=== PATIENT | female | born 1970 | race Caucasian/White ===

== ENCOUNTER → 2019-06-20 09:45 | Outpatient (BNVA) | payer MEDICARE, MEDICAID, SELFPAY | PROVIDERS: Family Provider Family Medicine; PCP Family Medicine; Visit Provider Family Medicine | DX: Z12.31 Encounter for screening mammogram for malignant neoplasm of breast (principal); F17.219 Nicotine dependence, cigarettes, with unspecified nicotine-induced disorders; I10 Essential (primary) hypertension; Z01.419 Encounter for gynecological examination (general) (routine) without abnormal findings; E78.2 Mixed hyperlipidemia | CPT/HCPCS: 36415; 80053; 80061; 85007; 85027 ==

== ENCOUNTER 2019-07-20 07:56 | Day surgery (SDC) | payer MEDICARE, MEDICAID, SELFPAY ==
[2019-07-19 10:05] VITALS: BMI 27.4
[2019-07-20 08:08] VITALS: BP 116/88; PULSE 90; RESP 18; TEMP 36.2; O2SAT 97
[2019-07-20] MEDS: sodium chloride 0.9% 1,000 ML 30 ML IV (08:40)
--- NOTE | 2019-07-20 08:44 | ANES.PREANE2 ---
Pre-Anesthetic Assessment Pre-Anesthetic Assessment: Height/Weight: Height 1.71 m Weight 80.739 kg Temp Pulse Resp BP Pulse Ox 97.2 F L 90 18 116/88 97 07/20/19 08:08 07/20/19 08:08 07/20/19 08:08 07/20/19 08:08 07/20/19 08:08 Preop Diagnosis: Ankle retained hardware right ankle Proposed Procedure: Operation Date: 07/20/19 09:15 Proposed Procedures p Hardware Removal Right ankle 69867 T84.84XA(Right) - Matty Cramer DPM Last intake: Intake Last Liquid Date 07/19/19 Last Liquid Time 22:00 Last Solid Date 07/19/19 Last Solid Time 22:00 Social: Packs per day: .5 Pack years: 20 Exam: Pre-Anes Outpt Exam: alert, oriented x 3, clear to auscultation bilaterally and regular rate & rhythm Airway: Submandibular: WNL Cervical ROM: WNL MP: 1 Additional comments: poor Pulmonary: Pulmonary: Asthma Comments: s/p pneumothorax CV/HEM: CV/HEM: HTN Comments: x 10y : Comments: stones Neuropsych: Neuropsych: Depression and Seizure Comments: pabic attack Anesthetic Plan: ASA status: 3 Anesthesia: MAC Meds/Allergies Current Medications: Current Medications Generic Name Dose Route Start Last Admin Trade Name Freq PRN Reason Stop Dose Admin Sodium Chloride 1,000 mls @ 30 ml s/hr 07/20/19 07:15 07/20/19 08:40 Sodium Chloride 0.9% IV 07/21/19 07:14 30 mls/hr .Q24H SHONDA Administration PFSH Anesthesia PFSH: Medical History (Updated 07/11/19 @ 07:44 by Matty Cramer DPM) Asthma, mild persistent (Acute) Bipolar affective (Acute) Essential (primary) hypertension (Chronic) Gastric ulcer (Acute) Hyperlipidemia, unspecified (Chronic) Intervertebral disc disorders with radiculopathy, lumbosacral region (Acute) Nicotine dependence, cigarettes, with unspecified nicotine-induced disorders (Chronic) Renal calculi (Acute) Retention of urine (Acute) Error Surgical History H/O removal of cyst (Acute) H/O: hysterectomy (Acute) S/P appendectomy (Acute) S/P cholecystectomy (Acute) S/P hardware removal (Acute) S/P tonsillectomy and adenoidectomy (Acute) S/P tubal ligation (Acute) Status post open reduction with internal fixation (ORIF) of fracture of ankle (Acute) Social History Smoking and tobacco status: current every day smoker cigarettes Second hand smoke exposure: Yes Smoking risk assessment/counseling performed?: Yes Alcohol intake: never Desire information about alcohol rehabilitation?: No Counseling given: No Desire information about substance/drug rehabilitation?: No Counseling given: No Adopted: No Caregiver/support person: Yes Lives independently: No Household members: spouse, family and children Housing: House Current gender identity: Female Data Anesthesia Cardiac Studies: No Data to Display
--- NOTE | 2019-07-20 09:40 | P.HPUD_ITS ---
H&P update H&P Update: DATE OF SURGERY/PROCEDURE: 07/20/19 DATE H&P PERFORMED: H&P UPDATE INFORMATION: H&P completed within last 30 days, No changes to prior documentation and H&P is in [facility] [place] indicated PREOP DIAGNOSIS: Ankle retained hardware right ankle PLANNED PROCEDURE: Operation Date: 07/20/19 09:15 Proposed Procedures p Hardware Removal Right ankle 45967 T84.84XA(Right) - Matty Cramer DPM Full H&P Medications/Allergies: Current Medications: Current Medications Generic Name Dose Route Start Last Admin Trade Name Freq PRN Reason Stop Dose Admin Sodium Chloride 1,000 mls @ 30 ml s/hr 07/20/19 07:15 07/20/19 08:40 Sodium Chloride 0.9% IV 07/21/19 07:14 30 mls/hr .Q24H SHONDA Administration Perinent History: Medical/Surgical History: Medical History (Updated 07/11/19 @ 07:44 by Matty Cramer DPM) Asthma, mild persistent (Acute) Bipolar affective (Acute) Essential (primary) hypertension (Chronic) Gastric ulcer (Acute) Hyperlipidemia, unspecified (Chronic) Intervertebral disc disorders with radiculopathy, lumbosacral region (Acute) Nicotine dependence, cigarettes, with unspecified nicotine-induced disorders (Chronic) Renal calculi (Acute) Retention of urine (Acute) Error Family History: Family History (Updated 07/10/19 @ 15:22 by Rhoda Mcgraw LPN) Other Anesthesia complication Cancer Diabetes Heart disease Denies family history of CAD (coronary artery disease) Clotting disorder Dementia Hyperlipidemia Psychiatric illness Chronic kidney disease (CKD) Suicide Bleeding disorder Family history of premature coronary artery disease Lung disease Hypertension Stroke Social History: Social History Smoking and tobacco status: current every day smoker cigarettes Second hand smoke exposure: Yes Smoking risk assessment/counseling performed?: Yes Alcohol intake: never Desire information about alcohol rehabilitation?: No Counseling given: No Desire information about substance/drug rehabilitation?: No Counseling given: No Adopted: No Caregiver/support person: Yes Lives independently: No Household members: spouse, family and children Housing: House Current gender identity: Female
[2019-07-20 10:49] VITALS: BP 135/98; PULSE 108; RESP 20; TEMP 36.8; O2SAT 100
--- NOTE | 2019-07-20 10:54 | P.OP_ITS ---
Operative Report Date of procedure: July 20, 2019 Pre-op Diagnosis: Ankle retained hardware right ankle Post-op diagnosis: same Post-op Findings: Serous drainage lateral ankle, cannot rule out ganglion. Procedure Done: Removal of deep hardware right ankle Implants: Hardware removed Specimens removed/disposition: Removed 8 screws and 1 plate right lateral ankle. One screw was sent as a specimen to microbiology for culture and sensitivity. Pathology: none sent Surgeon: Matty Cramer D.P.M. Milk Bottling Machine Operator: Mike Anesthesia: General and Local (Postoperative block consisting of Exparel total of 20 cc) Estimated blood loss: 2 mL IV fluids: None Urine output: None Complications: None none Findings: Retained hardware with possible ganglionic fluid Condition: stable Disposition: PACU Brief History: Patient is a pleasant 49-year-old female complaining of retained hardware that is painful in her right ankle is painful especially with pressure and wearing shoes. She describes the nature of the pain is burning. She has a ganglion cyst also removed at right lateral ankle previously. Risks of hardware removal include pain, bleeding, numbness, infection, failure to alleviate pain, neuritis, damage to adjacent soft tissue structures, recurrence of ganglion cyst, osteomyelitis, need for antibiotic therapy and need for further surgical intervention. Patient wishes to proceed verbal and written consent obtained. Procedure: Under mild sedation the patient was brought to the operating room and placed on the operating table in supine position. A timeout was performed. Anesthesia was then administered by the anesthesia service. Well-padded pneumatic tourniquet was applied to the right ankle. Right lower extremity was then scrubbed prepped and draped utilizing normal aseptic technique. Esmarch bandage was utilized examining weight the right foot and ankle. Tourniquet was inflated to 250 mmHg. Attention was directed to the previous cicatrix at the right lateral ankle directly over the previous incision a linear longitudinal incision was made with a #15 blade through skin and subcutaneous tissue. Dissection was carried down to the level hardware utilizing a combination of blunt and sharp technique. Care was taken to retract and preserve neurovascular and tendinous structures. Bleeders were ligated and cauterized as necessary. Hardware was encountered total of 8 screws and 1 plate were removed and passed proper field. A screw at the level of the metaphyseal region was sent to microbiology for culture and sensitivity. There was serous drainage appreciated without any obvious purulence or malodor at the distal plate this could have been a early ganglion formation of synovial fluid. No devitalized tissue was appreciated, fibula was normal consistency and appearance, with bright white and firm density. Incision site was irrigated with copious amounts of sterile saline solution. Periosteal structure was reapproximated with 2-0 Vicryl. Subcutaneous tissue reapproximated with 4-0 Vicryl. Skin reapproximated with altaf. Incision site was dressed with Adaptic, sterile 4 x 4's, Kerlix and Reece wrap. Tourniquet was deflated and a prompt hyperemic response was noted to the distal digits of the right foot. Patient tolerated the procedure and anesthesia well and was transferred to the PACU with vital signs stable and vascular status intact. Following a period of postoperative monitoring she will be discharged home. She may be weightbearing as tolerated, is to elevate her right foot while at rest. Was provided a prescription for hydrocodone 7.5/325 to be given every 4-6 hours as needed for pain she is to use this judiciously.
--- NOTE | 2019-07-20 10:54 | SUR.PHASEI ---
1049- RECEIVED PATIENT IN PACU FROM OR VIA [facility]. RESP ARE EVEN AND NONLABORED. SIMPLE MASK APPLIED AT 6LPM, SAT 99%. SHE IS AWAKE AND ALERT, DROWSY. RLE IS WARM TO TOUCH WITH CAP REFILL <3 SECONDS. DRESSING DRY AND INTACT. NO S/S PAIN OR NAUSEA.
[2019-07-20 10:55] VITALS: BP 133/95; PULSE 92; RESP 17; O2SAT 99
[2019-07-20 11:00] VITALS: BP 126/102; PULSE 93; RESP 18; TEMP 36.8; O2SAT 98
[2019-07-20 11:05] VITALS: BP 139/95; PULSE 96; RESP 20; TEMP 36.8; O2SAT 97
[2019-07-20 11:32] VITALS: BP 142/94; PULSE 88; RESP 18; TEMP 36.7; O2SAT 98
== END 2019-07-20 11:48 | disposition home or self-care (01) ==
PROVIDERS: Family Provider Family Medicine; PCP Family Medicine; Visit Provider Podiatrist Foot & Ankle Surgery
PROC: (CPT 20680; principal; 2019-07-20 09:15)
DX: T84.84XA Pain due to internal orthopedic prosthetic devices, implants and grafts, initial encounter (principal); Z79.891 Long term (current) use of opiate analgesic; I10 Essential (primary) hypertension; E78.5 Hyperlipidemia, unspecified; Z82.49 Family history of ischemic heart disease and other diseases of the circulatory system; Z83.3 Family history of diabetes mellitus; F17.210 Nicotine dependence, cigarettes, uncomplicated; J45.909 Unspecified asthma, uncomplicated
CPT/HCPCS: 20680; 12345; 87070; 87077; 87176; 87205; C9290; J0690; J1100; J1885; J2001; J2250; J2270; J2704; J3010; J7030

== ENCOUNTER → 2019-08-02 13:14 | Outpatient (BNVA) | payer MEDICARE, MEDICAID, SELFPAY | PROVIDERS: Family Provider Family Medicine; PCP Family Medicine; Visit Provider Podiatrist Foot & Ankle Surgery | DX: M79.672 Pain in left foot (principal); S92.512A Displaced fracture of proximal phalanx of left lesser toe(s), initial encounter for closed fracture; X58.XXXA Exposure to other specified factors, initial encounter | CPT/HCPCS: 73630 ==